=== PATIENT | female | born 1960 | race Caucasian/White ===

== ENCOUNTER → 2018-09-09 | Outpatient (CLI) | payer BC ==
[2018-09-13 15:07] LABS: HPV 16 Negative (Negative); HPV 18 Negative (Negative); HPV OTHER HR TYPES Negative (Negative)
== END | disposition home or self-care (01) ==
LOC: LAB 16:32 → LAB SHORT 16:32
PROVIDERS: Nurse Practitioner Women's Health
DX: Z12.72 Encounter for screening for malignant neoplasm of vagina (principal); Z91.89 Other specified personal risk factors, not elsewhere classified
CPT/HCPCS: 87624; G0123

== ENCOUNTER 2019-07-24 00:52 | Observation (INO) | payer BC ==
[~2019-07-24] VITALS: Ht 172.7 cm; Wt 83.9 kg
[2019-07-24] MEDS ORDERED: LEVSOD50 PO (01:35)
[2019-07-24 02:48] LABS: Source, Urine Clean Catch
[2019-07-24 02:52] LABS: BASOPHILS ABSOLUTE AUTO 0.05 K/mm3 (0.00-0.23); BASOPHILS PERCENT AUTO 0 % (0-2); EOSINOPHILS ABSOLUTE AUTO 0.24 K/mm3 (0.00-0.68); EOSINOPHILS PERCENT AUTO 2 % (0-6); Hematocrit 41.3 % (33.0-51.0); Hemoglobin 13.8 g/dL (11.5-16.0); IMMATURE GRAN ABSOLUTE AUTO 0.03 K/mm3 (0.00-0.10); IMMATURE GRAN PERCENT AUTO 0 % (0-1); LYMPHOCYTES ABSOLUTE AUTO 1.73 K/mm3 (0.84-5.20); LYMPHOCYTES PERCENT AUTO 15 % (21-46); MONOCYTES ABSOLUTE AUTO 1.18 K/mm3 (0.16-1.47); MONOCYTES PERCENT AUTO 10 % (4-13); Mean Corpuscular HGB 29.7 pg (26.0-34.0); Mean Corpuscular HGB Conc 33.4 g/dL (31.5-36.5); Mean Corpuscular Volume 89 fL (80-100); Mean Platelet Volume 9.4 fL (9.1-12.4); NEUTROPHILS ABSOLUTE AUTO 8.63 K/mm3 (1.96-9.15); NEUTROPHILS PERCENT AUTO 73 % (41-73); Platelet Count 247 K/mm3 (150-400); RDW Coefficient Variation 11.4 % (11.7-14.2); RDW Standard Deviation 36.7 fL (35.1-46.3); Red Blood Cell Count 4.64 M/mm3 (3.80-5.20); White Blood Cell Count 11.86 K/mm3 (4.00-11.30)
[2019-07-24 02:55] LABS: Bilirubin, Urine Neg (Neg); Blood, Urine 1+ (Neg); Glucose Qualitative, Urine Neg (Neg); Ketones, Urine Neg (Neg); Leukocyte Esterase, Urine 2+ (Neg); Nitrite, Urine Neg (Neg); Protein, Urine Neg (Neg); Urobilinogen, Urine NORM (Normal)
[2019-07-24 02:56] LABS: Appearance, Urine Clear (Clear); Color, Urine Yellow (P-Yellow)
[2019-07-24 03:03] LABS: Bacteria Few /hpf; Red Blood Cells, Urine 0-2 /hpf (0-2); Squamous Epithelial Cells Few /hpf (Few)
[2019-07-24 03:13] LABS: Alanine Aminotransfer (ALT/SGP 28 U/L (12-78); Albumin, Blood 3.6 g/dL (3.4-5.0); Albumin/Globulin Ratio 1.2 (0.8-1.8); Alk Phos 111 U/L (50-136); Anion Gap 5 mmol/L (6-16); Aspartate Aminotrans (AST/SGOT 16 U/L (12-37); Blood Urea Nitrogen 18 mg/dL (8-24); Bun/Creatinine Ratio 26.1 (12.0-20.0); CO2, Blood 28 mmol/L (21-32); Calcium, Blood 8.8 mg/dL (8.5-10.1); Chloride, Blood 108 mmol/L (98-108); Creatinine, Blood 0.69 mg/dL (0.40-1.00); Glomerular Filtration Rate >60 (60-); Glucose, Blood 111 mg/dL (70-99); Potassium, Blood 3.7 mmol/L (3.5-5.5); Sodium, Blood 141 mmol/L (136-145); Total Protein, Blood 6.6 g/dL (6.4-8.2); Troponin I <0.015 ng/mL (0.000-0.040)
--- NOTE | 2019-07-24 06:44 | NUR ---
ASSUMED CARE PT TO SURGICAL FLOOR AT THIS TIME. REPORTS TENDER ABDOMEN. A/O X4. FAMILY AT BEDSIDE.
--- NOTE | 2019-07-24 09:34 | NUR ---
PT TRANSPORTED TO DAY SURGERY BY SURGICAL NURSES. PT STABLE UPON TRANSPORT.
--- NOTE | 2019-07-24 10:17 | NUR ---
PT RESTING QUIETLY IN PACU FOR LAP RAYRAY PROCEDURE. AT BEDSIDE. SURGICAL PACK COMPLETE. BP, PAS, & SURGICAL HAT IN PLACE. LR AT TKO. ANTIBIOTIC READY TO INFUSE. NO COMPLAINTS. VSS/AFEBRILE.
--- NOTE | 2019-07-24 13:02 | NUR ---
PT RETURNED TO HER ROOM FROM DAY SURGERY. SHE HAS N/V. ZOFRAN WAS GIVEN ORDERED. PT IS DROWSY MY A/O X 4.
--- NOTE | 2019-07-24 15:52 | NUR ---
SHIFT SUMMARY: PT HAS BEEN A/O X 4 WITH C/O ABD PAIN THIS MORNING. AFTER COMPLETING ADMISSION ASSESSMENT THE SURGICAL NURSES TRANSPORTED THE PT TO DAY SURGERY. PER REPORT PT HAD A LAP RAYRAY AND SHE NOW HAS 4 GAUZE DRESSINGS ON HER ABDOMEN. UPON RETURN TO HER ROOM THE PT HAD SEVERAL EPISODES OF N/V. AND WAS INC OF URINE WITH EACH EPISODE. ANTI-NAUSEA MEDS WERE GIVEN ORDERED AND WERE EFFECTIVE AFTER ABOUT AN HOUR WHEN SHE FIANLLY FELL ASLEEP. PT WAS ASSISTED TO GET CLEANED UP AFTER EACH INC EPISODE AND A PAD AND BRIEF WERE PROVIDED OF NOW. SHE ALSO C/O FEELING HOT AND CLAMMY SO A FAN WAS PROVIDED AT THE BEDSIDE. VSS. DR HAWKINS WAS UPDATED AND CAME TO SEE THE PT AT THE BEDSIDE. SEVERAL FAMILY MEMBERS ARE AT THE BEDSIDE WITH HER INCLUDING HER . SHE IS RESTING NOW AND IS ABLE TO MAKE HER NEEDS KNOWN. SHE CALLS FOR HELP WHEN NEEDED.
--- NOTE | 2019-07-25 04:19 | NUR ---
SHIFT SUMMARY POD1 EX LAP RAYRAY PT AA0X4, VSS. PT DENIES PAIN. PT REPORTS NAUSEA DURING SHIFT, MEDICATED WITH ZOFRAN. PT STATED RELIEF. DENIES PAIN. PO FOOD INTAKE CAUSED NAUSEA. PT HAS BEEN UP AND AMBULATING TO BATHROOM TO VOID. REPORTS PASSING FLATUS. LAP SITES CDI, NO DRAINAGE NOTED. DENIES PAIN WITH ABDOMINAL PALPATION. PT RESTING IN BED WITH EYES CLOSED DURING SHIFT.
[2019-07-25] MEDS ORDERED: HYDR1TAB94 PO (09:34)
--- NOTE | 2019-07-25 10:01 | NUR ---
DISCHARGE SUMMARY PT A&OX4, VSS, WALKED OFF FLOOR, DECLINING WC OUT, WITH FAMILY TO GO HOME, WITH ALL PERSONAL POSSESSIONS INCLUDING DC PACKET AND 1 NARC SCRIPT. DC INSTRUCTIONS PROVIDED. PT REP UNDERSTANDING THOSE INSTRUCTIONS INCLUDING FU WITH SG IN 2 WKS, LEAVE STERIS IN PLACE 7-10 DAYS, OK TO SHOWER/NO TUB/JACUZZI, NO LIFTING >20 LBS, SPLINTING W/COUGH/LAUGH/SNEEZE, NO DRIVING WHILE TAKING NARCOTICS. IV DC'D.
== END 2019-07-25 09:53 | disposition home or self-care (01) ==
LOC: ER 00:52 → SURS 00:53 → ER 05:18 → SURS 06:37
PROVIDERS: Emergency Medicine; ADMIT Surgery
PROC: 0FT44ZZ Resection of Gallbladder, Percutaneous Endoscopic Approach (ICD-10-PCS; principal; 2019-07-24 11:15)
DX: K80.00 Calculus of gallbladder with acute cholecystitis without obstruction (principal); E03.9 Hypothyroidism, unspecified; Z88.0 Allergy status to penicillin; Z88.8 Allergy status to other drugs, medicaments and biological substances; Z79.899 Other long term (current) drug therapy
CPT/HCPCS: 36415; 74176; 76705; 80053; 81001; 83690; 83735; 84145; 84484; 85025; 87086; 88304; 93005; 93010; 96361; 96374; 96375; 96376; 99285-25; G0378; J0690; J1100; J1170; J1885; J2250; J2405; J2704; J3010; J7030; J7120

== ENCOUNTER 2021-02-14 15:49 | Emergency (ER) | payer BC ==
[~2021-02-14] VITALS: Ht 172.7 cm; Wt 78.0 kg
[~2021-02-14 15:49] MED LIST: AMLO5 PO; BEVACIZUMAB IV; CHLO25B PO; Carboplati10 MG/1 ML IV; D3; DEXA4; DOCETAXEL IV; EUTHYROX50 MCG PO; HYDR1TAB94 PO; LORA10ER PO; MAGNESIUM OXID500 MG PO; Prochlorperazin10 MG PO; SYNTHROID50 MC1 PO; ZOFRAN4 MG PO
[2021-02-14 16:23] LABS: BASOPHILS ABSOLUTE AUTO 0.05 K/mm3 (0.00-0.23); BASOPHILS PERCENT AUTO 1 % (0-2); EOSINOPHILS ABSOLUTE AUTO 0.09 K/mm3 (0.00-0.68); EOSINOPHILS PERCENT AUTO 1 % (0-6); Hematocrit 35.6 % (33.0-51.0); Hemoglobin 12.7 g/dL (11.5-16.0); IMMATURE GRAN ABSOLUTE AUTO 0.05 K/mm3 (0.00-0.10); IMMATURE GRAN PERCENT AUTO 1 % (0-1); LYMPHOCYTES ABSOLUTE AUTO 1.21 K/mm3 (0.84-5.20); LYMPHOCYTES PERCENT AUTO 14 % (21-46); MONOCYTES ABSOLUTE AUTO 0.72 K/mm3 (0.16-1.47); MONOCYTES PERCENT AUTO 8 % (4-13); Mean Corpuscular HGB Conc 35.7 g/dL (31.5-36.5); Mean Corpuscular Volume 98 fL (80-100); Mean Platelet Volume 9.5 fL (9.1-12.4); NEUTROPHILS ABSOLUTE AUTO 6.76 K/mm3 (1.96-9.15); NEUTROPHILS PERCENT AUTO 76 % (41-73); Platelet Count 196 K/mm3 (150-400); RDW Coefficient Variation 11.9 % (11.7-14.2); Red Blood Cell Count 3.63 M/mm3 (3.80-5.20); White Blood Cell Count 8.88 K/mm3 (4.00-11.30)
[2021-02-14 16:42] LABS: Alanine Aminotransfer (ALT/SGP 19 U/L (12-78); Albumin, Blood 3.7 g/dL (3.4-5.0); Albumin/Globulin Ratio 1.3 (0.8-1.8); Alk Phos 105 U/L (50-136); Anion Gap 3 mmol/L (6-16); Aspartate Aminotrans (AST/SGOT 21 U/L (12-37); Bilirubin, Total 0.9 mg/dL (0.1-1.0); Blood Urea Nitrogen 19 mg/dL (8-24); Bun/Creatinine Ratio 25.6 (12.0-20.0); CO2, Blood 28 mmol/L (21-32); Chloride, Blood 110 mmol/L (98-108); Creatinine, Blood 0.74 mg/dL (0.40-1.00); Globulin, Blood 2.8 g/dL (2.2-4.0); Glomerular Filtration Rate >60 (60-); Glucose, Blood 96 mg/dL (70-99); Potassium, Blood 3.5 mmol/L (3.5-5.5); Sodium, Blood 141 mmol/L (136-145); Total Protein, Blood 6.5 g/dL (6.4-8.2); Troponin I <0.015 ng/mL (0.000-0.040)
[2021-02-14] MEDS ORDERED: VITAMIN D31000 UNI1 PO (17:12)
== END 2021-02-14 20:25 | disposition home or self-care (01) ==
LOC: ER 15:49
PROVIDERS: Physician Assistant
DX: R07.9 Chest pain, unspecified (principal); Z91.09 Other allergy status, other than to drugs and biological substances; Z88.0 Allergy status to penicillin; Z79.899 Other long term (current) drug therapy
CPT/HCPCS: 71046; 71260; 80053; 84484; 85025; 85379; 93005; 93010; 99284-25; Q9967

== ENCOUNTER 2022-01-21 07:38 | Day surgery (SDC) | payer OTHER ==
[~2022-01-21] VITALS: Ht 172.7 cm; Wt 75.3 kg
[~2022-01-21 07:38] MED LIST changes: +DOC250 PO; +ONDA4ODT SL; +Prinivil10 MG PO; +VITAMIN D31000 UNI1 PO
--- NOTE | 2022-01-21 09:11 | NUR ---
01/21/22 0911 Nicole Juarez MDT CANCELLED COLONOSCOPY DUE TO PT RECENTLY RESTARTING AVASTIN CHEMOTHERAPY DRUG, TO HIGH OF A RISK OF COLON PERFORATION WHILE TAKING THIS MEDICATION.
== END 2022-01-21 09:10 | disposition home or self-care (01) ==
LOC: ORSCSDS 07:38
DX: Z12.11 Encounter for screening for malignant neoplasm of colon (principal); Z53.9 Procedure and treatment not carried out, unspecified reason
CPT/HCPCS: J2704; J7120

== ENCOUNTER 2022-05-07 00:53 | Emergency (ER) | payer OTHER ==
[~2022-05-07] VITALS: Ht 172.7 cm; Wt 74.8 kg
[2022-05-07 02:00] LABS: BASOPHILS ABSOLUTE AUTO 0.04 K/mm3 (0.00-0.23); BASOPHILS PERCENT AUTO 1 % (0-2); EOSINOPHILS ABSOLUTE AUTO 0.21 K/mm3 (0.00-0.68); EOSINOPHILS PERCENT AUTO 2 % (0-6); Hematocrit 35.6 % (33.0-51.0); Hemoglobin 12.3 g/dL (11.5-16.0); IMMATURE GRAN ABSOLUTE AUTO 0.02 K/mm3 (0.00-0.10); IMMATURE GRAN PERCENT AUTO 0 % (0-1); LYMPHOCYTES PERCENT AUTO 13 % (21-46); MONOCYTES ABSOLUTE AUTO 0.86 K/mm3 (0.16-1.47); MONOCYTES PERCENT AUTO 10 % (4-13); Mean Corpuscular HGB 31.5 pg (26.0-34.0); Mean Corpuscular HGB Conc 34.6 g/dL (31.5-36.5); Mean Corpuscular Volume 91 fL (80-100); Mean Platelet Volume 9.1 fL (9.1-12.4); NEUTROPHILS ABSOLUTE AUTO 6.44 K/mm3 (1.96-9.15); NEUTROPHILS PERCENT AUTO 74 % (41-73); Platelet Count 140 K/mm3 (150-400); RDW Coefficient Variation 12.3 % (11.7-14.2); RDW Standard Deviation 40.5 fL (35.1-46.3); White Blood Cell Count 8.67 K/mm3 (4.00-11.30)
[2022-05-07 02:10] LABS: Albumin, Blood 3.4 g/dL (3.4-5.0); Albumin/Globulin Ratio 1.1 (0.8-1.8); Bilirubin, Total 0.6 mg/dL (0.1-1.0); Bun/Creatinine Ratio 28.4 (12.0-20.0); Calcium, Blood 9.1 mg/dL (8.5-10.1); Creatinine, Blood 1.09 mg/dL (0.40-1.00); Globulin, Blood 3.1 g/dL (2.2-4.0); Potassium, Blood 3.9 mmol/L (3.5-5.5); Total Protein, Blood 6.5 g/dL (6.4-8.2)
== END 2022-05-07 05:45 | disposition home or self-care (01) ==
LOC: ER 00:53
PROVIDERS: Student in an Organized Health Care Education/Training Program
DX: R07.81 Pleurodynia (principal); M54.6 Pain in thoracic spine; Z88.0 Allergy status to penicillin; Z91.09 Other allergy status, other than to drugs and biological substances; Z88.8 Allergy status to other drugs, medicaments and biological substances; Z79.890 Hormone replacement therapy; Z79.899 Other long term (current) drug therapy
CPT/HCPCS: 71046; 71260; 80053; 83690; 84484; 85025; 93005; 93010; 96374-59; 99284-25; J1885; Q9967

== ENCOUNTER 2022-08-26 17:48 | Observation (INO) | payer OTHER ==
[~2022-08-26] VITALS: Ht 170.2 cm; Wt 69.3 kg
[2022-08-26 18:23] LABS: BASOPHILS ABSOLUTE AUTO 0.03 K/mm3 (0.00-0.23); BASOPHILS PERCENT AUTO 0 % (0-2); EOSINOPHILS ABSOLUTE AUTO 0.04 K/mm3 (0.00-0.68); EOSINOPHILS PERCENT AUTO 0 % (0-6); Hematocrit 27.3 % (33.0-51.0); Hemoglobin 9.7 g/dL (11.5-16.0); IMMATURE GRAN ABSOLUTE AUTO 0.07 K/mm3 (0.00-0.10); IMMATURE GRAN PERCENT AUTO 1 % (0-1); LYMPHOCYTES ABSOLUTE AUTO 0.62 K/mm3 (0.84-5.20); LYMPHOCYTES PERCENT AUTO 6 % (21-46); MONOCYTES ABSOLUTE AUTO 0.94 K/mm3 (0.16-1.47); MONOCYTES PERCENT AUTO 10 % (4-13); Mean Corpuscular HGB 33.4 pg (26.0-34.0); Mean Corpuscular HGB Conc 35.5 g/dL (31.5-36.5); Mean Corpuscular Volume 94 fL (80-100); Mean Platelet Volume 9.2 fL (9.1-12.4); NEUTROPHILS ABSOLUTE AUTO 8.06 K/mm3 (1.96-9.15); NEUTROPHILS PERCENT AUTO 83 % (41-73); Platelet Count 189 K/mm3 (150-400); RDW Coefficient Variation 11.7 % (11.7-14.2); RDW Standard Deviation 40.5 fL (35.1-46.3); White Blood Cell Count 9.76 K/mm3 (4.00-11.30)
[2022-08-26 18:40] LABS: Albumin, Blood 3.3 g/dL (3.4-5.0); Albumin/Globulin Ratio 1.1 (0.8-1.8); Bilirubin, Total 0.8 mg/dL (0.1-1.0); Bun/Creatinine Ratio 24.6 (12.0-20.0); Calcium, Blood 9.2 mg/dL (8.5-10.1); Creatinine, Blood 1.22 mg/dL (0.40-1.00); Potassium, Blood 3.5 mmol/L (3.5-5.5); Total Protein, Blood 6.3 g/dL (6.4-8.2)
--- NOTE | 2022-08-27 04:30 | NUR ---
SHIFT SUMMARY PT ADMITTED FROM ED. PT ORIENTED TO ROOM AND CALL SYSTEM. PT STATED SHE WISHED TO BE DNR AND HAD SPOKEN WITH ED MD ABOUT IT, BUT WAS STILL LISTED FULL CODE IN COMPUTER SYSTEM. BP WAS ELEVATED AND I CALLED THE DR TO SEE IF THEY WOULD LIKE ANY ORDERS FOR MEDICATION TO BE ADMINISTERED AND TO INFORM OF HER WISHES REGARDING CODE STATUS. SHE REQUSTED PAIN MEDICATION ONE TIME SO FAR THIS SHIFT AND IT WAS GIVEN PER ORDERS. SHE DENIES ANY N/V/D. PT HAS BEEN RESTING QUIETLY WITH EYES CLOSED. WILL CONTINUE TO MONITOR AND PROVIDE CARE ORDERED.
[2022-08-27 05:18] LABS: BASOPHILS ABSOLUTE AUTO 0.03 K/mm3 (0.00-0.23); BASOPHILS PERCENT AUTO 0 % (0-2); EOSINOPHILS ABSOLUTE AUTO 0.05 K/mm3 (0.00-0.68); EOSINOPHILS PERCENT AUTO 1 % (0-6); Hematocrit 26.2 % (33.0-51.0); Hemoglobin 9.2 g/dL (11.5-16.0); IMMATURE GRAN ABSOLUTE AUTO 0.05 K/mm3 (0.00-0.10); IMMATURE GRAN PERCENT AUTO 1 % (0-1); LYMPHOCYTES ABSOLUTE AUTO 0.45 K/mm3 (0.84-5.20); LYMPHOCYTES PERCENT AUTO 5 % (21-46); MONOCYTES ABSOLUTE AUTO 0.94 K/mm3 (0.16-1.47); MONOCYTES PERCENT AUTO 11 % (4-13); Mean Corpuscular HGB 33.1 pg (26.0-34.0); Mean Corpuscular HGB Conc 35.1 g/dL (31.5-36.5); Mean Corpuscular Volume 94 fL (80-100); Mean Platelet Volume 9.4 fL (9.1-12.4); NEUTROPHILS ABSOLUTE AUTO 7.36 K/mm3 (1.96-9.15); NEUTROPHILS PERCENT AUTO 83 % (41-73); Platelet Count 165 K/mm3 (150-400); RDW Coefficient Variation 11.7 % (11.7-14.2); RDW Standard Deviation 40.4 fL (35.1-46.3); Red Blood Cell Count 2.78 M/mm3 (3.80-5.20); White Blood Cell Count 8.88 K/mm3 (4.00-11.30)
[2022-08-27 05:51] LABS: Albumin, Blood 2.9 g/dL (3.4-5.0); Bilirubin, Total 0.9 mg/dL (0.1-1.0); Bun/Creatinine Ratio 21.7 (12.0-20.0); Calcium, Blood 8.7 mg/dL (8.5-10.1); Creatinine, Blood 1.06 mg/dL (0.40-1.00); Globulin, Blood 2.8 g/dL (2.2-4.0); Potassium, Blood 3.5 mmol/L (3.5-5.5); Total Protein, Blood 5.7 g/dL (6.4-8.2)
--- NOTE | 2022-08-27 06:09 | NUR ---
PT CODE STATUS WAS OFFICIALLY CHANGED THIS SHIFT FROM FULL CODE TO DNR.
--- NOTE | 2022-08-27 10:56 | NUR ---
CALIXTO IS MEETING WITH PALLIATIVE CARE RN RENAN AT THIS TIME SHE DESIRES TO BE PLACED ON PALLIATIVE CARE. PATIENT WAS ORDERED A CL LIQ DIET. BS ARE PRESENT. DENIES PAIN BUT FEELS LIKE SOMETHING "IS IN THERE THAT NEEDS TO COME OUT". AND SISTER ARE PRESENT WITH PATIENT.
--- NOTE | 2022-08-27 11:21 | NUR ---
PATIENT WAS CHANGED TO A FULL LIQ DIET. SHE WAS GIVEN A GEL-POWER CUP. AFTER EATING THE GELATIN, HER ABDOMEN BECAME PAINFUL- DULL PAIN. SHE IS REQUESTING PAIN MEDICATION.
--- NOTE | 2022-08-27 11:58 | NUR ---
Received call from Primary RN Ingrid reporting Pt is requesting a Palliative Care consult. Placed PC consult. Pt resting in bed and is A&OX4. Pt's Rommel and Pt's sister Naye at bedside. Offered therapeutic listening as Pt discusses thought regarding treatment. She reports no longer wanting her life to evolve around cancer treatment. Pt reports her quality of life diminshes after receiving treatment due to side effects and feeling ill from side effects. Continued therapeutic listening. Discussed options including continuing treatment, considering AIM program, and considering hospice. Educated on AIM and hospice philosophy and answered questions. Provided brochures for each agency and choice letter for Pt and family to consider. Pt and family expresses appreciation and report no other concerns. Provided Palliative Care contact information per 's request. Spoke with Dr Mccallum and discussed case. Palliative Care will remain available.
[2022-08-27] MEDS ORDERED: HALO.5 PO (14:56)
[2022-08-27] MEDS ORDERED: ONDA4ODT MM (15:00)
[2022-08-27] MEDS ORDERED: MORP20L PO (15:06)
--- NOTE | 2022-08-27 16:08 | NUR ---
PATIENT WAS DISCHARGED TO HOME WITH HER PRESENT, AND TRANSPORTING. IV WAS REMOVED, PATIENT WAS PROVIDED EDUCATION ON NEW MEDS, FOLLOW UP APPTS, PALLIATIVE CARE AND MEDICAL RECORDS. SHE WAS WHEELED OUT APROX [id number], WHERE HER WAS WAITING WITH VEHICLE.
== END 2022-08-27 16:04 | disposition home or self-care (01) ==
LOC: ER 17:48 → MEDS 20:31
PROVIDERS: Student in an Organized Health Care Education/Training Program; ADMIT Internal Medicine
DX: K56.609 Unspecified intestinal obstruction, unspecified as to partial versus complete obstruction (principal); C79.60 Secondary malignant neoplasm of unspecified ovary; C78.7 Secondary malignant neoplasm of liver and intrahepatic bile duct; C78.89 Secondary malignant neoplasm of other digestive organs; K21.9 Gastro-esophageal reflux disease without esophagitis; N17.9 Acute kidney failure, unspecified; E03.9 Hypothyroidism, unspecified
CPT/HCPCS: 36415; 80053; 85025; 96374; 96375; 99284-25; A9270; J1650; J2270; J2405; J3010; J7030; J7120